=== PATIENT | female | born 1980 | race Caucasian/White ===

== ENCOUNTER 2019-06-07 11:44 | Emergency (ER) | payer SELFPAY ==
[~2019-06-07] VITALS: Ht 175.3 cm; Wt 79.4 kg
[2019-06-07 11:47] VITALS: BP 140/86
--- NOTE | 2019-06-07 11:49 | NUR ---
[employer] [facility] FOR MEDICAL CLEARANCE/PREBOOK. NO COMPLAINTS AT THIS TIME.
--- NOTE | 2019-06-07 11:50 | NUR ---
DR. LINO EVALUATING PT AT CHAIR
[2019-06-07 11:52] VITALS: BP 140/86
--- NOTE | 2019-06-07 11:52 | NUR ---
PT RELEASED INTO CUSTODY OF [employer]ICER [employer]. PT MEDICALLY CLEARED BY DR. LINO AND STARLA TO BOOK. PRE-BOOK FORM AND COPY GIVEN TO OFFICER. PT DISCHARGED BY DR. LINO.
== END 2019-06-07 11:52 ==
LOC: MED 11:44
DX: Z02.89 Encounter for other administrative examinations (principal)
CPT/HCPCS: 99283